=== PATIENT | male | born 1985 | race African-American/Black ===

== ENCOUNTER 2022-04-24 14:08 | Emergency (ER) | payer SELFPAY ==
[2022-04-24] MEDS ORDERED: Sodium Chloride 0.9% 1,000 ML IV ONE (15:20)
[2022-04-24] MEDS ORDERED: Metoclopramide 10 MG/2 ML SDV IV ONE (15:20)
[2022-04-24] MEDS ORDERED: Ondansetron 4 MG/2 ML SDV IVPUSH ONE (15:20)
[2022-04-24] MEDS ORDERED: diphenhydrAMINE 50 MG/ML SDV IVPUSH ONE (15:20)
[2022-04-24] MEDS ORDERED: Ketorolac 30 MG/ML SDV IVPUSH ONE (19:28)
== END 2022-04-24 19:52 | disposition home or self-care (01) ==
LOC: MW.ED 14:08
DX: J32.9 Chronic sinusitis, unspecified (principal); Z20.822 Contact with and (suspected) exposure to COVID-19
CPT/HCPCS: 70450; 87635; 96361; 96374; 96375; 99284; J1200; J1885; J2405; J2765; J7030; 99283; U0002